=== PATIENT | female | born 1970 | race Two or more races ===

== ENCOUNTER → 2024-08-23 | Outpatient (CLI) | payer MEDICARE, MEDICAID, SELFPAY ==
--- NOTE | 2024-08-23 09:10 | XR_ITS ---
Examination: CT abdomen, without intravenous contrast. CT pelvis, without intravenous contrast. CT abdomen, with intravenous contrast. CT pelvis, with intravenous contrast. 2-D sagittal coronal reconstructions. Date and time of exam:August 23, 2024 administered 1013 hours INDICATIONS: History liver and pancreatic cyst on study 12/21/2023, diagnosis liver disease CTDI: vol (mGy) 15.9 DLP: (mGycm) 540 Technique: Multiple 3.0 axial images of the abdomen and pelvis without intravenous contrast, 3.0 mm slice thickness. Multiple 3.0 postcontrast images abdomen and pelvis also obtained, post intravenous injection 60 cc [id number] 2-D sagittal and coronal reconstructions. Low dose protocols were performed. One or more of the following dose reduction techniques were used; automated exposure control, adjustment of the mA and/or KV according to patient size, use of iterative reconstruction technique. Findings: Stable 12 mm left lobe liver cyst Spleen is not enlarged No gallstones 17 mm cyst at the tail the pancreas compared to 30 mm on 12/21/2023 No renal or ureteral calculi, no hydronephrosis No bowel obstruction Abundant stool in the colon No pericecal inflammatory change No diverticulitis Urinary bladder wall thickening up to 10 mm L4-L5 4 mm central lumbar disc bulge IMPRESSION: Stable liver cysts 17 mm cyst at the tail the pancreas compared to 30 mm on 12/21/2023 No findings of bowel obstruction or appendicitis Urinary bladder wall thickening up to 10 mm, differential would include cystitis
[2024-08-23 09:45] LABS: HCG Qualitative,Urine Negative
== END | disposition home or self-care (01) ==
LOC: COPL 08:46
PROVIDERS: Internal Medicine Gastroenterology; PCP Nurse Practitioner Family; Referring Provider Radiology Diagnostic Radiology; Visit Provider Radiology Diagnostic Radiology
DX: K76.89 Other specified diseases of liver (principal); N32.89 Other specified disorders of bladder; Z32.00 Encounter for pregnancy test, result unknown
CPT/HCPCS: 74178; 81025; A4649; Q9967

== ENCOUNTER → 2024-09-13 | Outpatient (CLI) | payer MEDICARE, MEDICAID, SELFPAY ==
--- NOTE | 2024-09-13 09:30 | XR_ITS ---
Examination: MRI abdomen with intravenous contrast. MRI abdomen without intravenous contrast. Date and time of exam: September 13, 2024 1107 hours INDICATIONS: History liver and pancreatic cysts, 17 mm cyst at the tail the pancreas on CT study August 23, 2024, patient has abdominal pain and nausea 2 years Technique: Multiple axial, sagittal and coronal sections of the abdomen obtained. Transverse images, TR 6020, TE 107. T1 weighted transverse images, TR 582, TE 9.5. T2-weighted sagittal images, TR 4000, TE 105. T2-weighted sagittal images, TR 4000, TE 5. Coronal images, TR 4210, TE 107. Axial and coronal images are obtained post 20 cc intravenous injection, gadolinium. Findings: Hepatomegaly 17 cm 9 mm lower pole right lobe liver cyst and 14 mm anterior left lobe liver cyst on the precontrast images The cysts do not enhance on the postcontrast imaging No gallstones No extra hepatic biliary tract dilatation, no common hepatic or common bile duct stones Spleen is not enlarged Aorta normal size 17 mm cyst at the tail the pancreas which does not enhance on the contrast images No ascites Aorta normal size No hydronephrosis No abdominal lymphadenopathy IMPRESSION: Mild hepatomegaly Benign hepatic and pancreatic cysts
== END | disposition home or self-care (01) ==
PROVIDERS: PCP Nurse Practitioner Family; Referring Provider Nurse Practitioner Family; Visit Provider Nurse Practitioner Family
DX: R16.0 Hepatomegaly, not elsewhere classified (principal); K86.2 Cyst of pancreas
CPT/HCPCS: 74183; A9579